=== PATIENT | female | born 1945 | race Caucasian/White ===

== ENCOUNTER 2020-03-04 12:57 | Outpatient (CLI) | payer MEDICARE ==
--- NOTE | 2020-03-04 14:13 | CT Report ---
PROCEDURE: Low Dose Lung Cancer Screen INDICATIONS: HISTORY OF SMOKING TECHNIQUE: Noncontrast low-dose 5 mm thick sections acquired from the pulmonary apices to the posterior costophr enic angles. 7 mm thick coronal and sagittal MIP reformats were then acquired. For radiation dose r eduction, the following was used: automated exposure control, adjustment of mA and/or kV according t o patient size. COMPARISON: None. FINDINGS: Image quality: Excellent. Lungs and pleura: Mild atelectasis involving the left lung base, lingula, and right middle lobe. No focal mass or suspicious nodules. No septal thickening or nodularity. No pneumothorax or pleural effu antione. Mediastinum: Heart size is normal. No pericardial effusion. Coronary arterial calcifications are pr esent. No mediastinal adenopathy by size criteria. Thoracic aorta and central pulmonary arteries are normal in size. Esophagus is normal in caliber. No hiatal hernia. Bones and chest wall: No suspicious bony lesions. No vertebral body compression fractures. No axil ricardo or supraclavicular adenopathy by size criteria. The thyroid is normal in size. Abdomen: Visualized upper abdomen solid organs and bowel loops appear normal in the absence of contr ast. Vascular calcifications are noted in the bilateral renal gladis. These are not favored to represen t nonobstructing renal stones. Scattered atherosclerotic calcifications without aneurysmal dilatation of the abdominal aorta. IMPRESSION: CT chest without acute cardiopulmonary abnormalities. No suspicious pulmonary nodules or mass lesions. Overall assessment: LUNG-RADS 1. Continue annual screening in one year Reviewed by: Jeff Del Toro MD on 03/04/2020 2:12 PM PDT Approved by: Jeff Del Toro MD on 03/04/2020 2:12 PM PDT Station ID: [id number]
== END 2020-03-04 12:58 | disposition home or self-care (01) ==
LOC: DI 12:57
PROVIDERS: ATTEND Student in an Organized Health Care Education/Training Program
DX: Z12.2 Encounter for screening for malignant neoplasm of respiratory organs (principal); F17.210 Nicotine dependence, cigarettes, uncomplicated
CPT/HCPCS: G0297 ×2